=== PATIENT | male | born 1945 | race Caucasian/White ===

== ENCOUNTER 2023-05-06 07:56 | Inpatient (IN) | payer MEDICARE, BC ==
[~2023-05-06] VITALS: Ht 180 cm; Wt 69.6 kg
[2023-05-06] MEDS ORDERED: dilTIAZem DRIP PRE-MIX 125 ML IV ONE (09:40)
[2023-05-06] MEDS ORDERED: CALCIUM CARBONATE 500 MG (TUMS) TAB.CHEW PO PRN (10:30)
[2023-05-06] MEDS ORDERED: ANTACID SUSP 30 ML UDC (MYLANTA) PO PRN (10:30)
[2023-05-06] MEDS ORDERED: ONDANSETRON 4 MG/2 ML (SDV) Z0FRAN IV PRN (10:30)
[2023-05-06] MEDS ORDERED: polyethylene glycoL POWDER 17 GM (MIRALAX) PACK PO PRN (10:30)
[2023-05-06] MEDS ORDERED: ONDANSETRON 4 MG (ZOFRAN) ORAL DISSOLVE TAB PO PRN (10:30)
[2023-05-06] MEDS ORDERED: BISACODYL 10 MG SUPP (DULCOLAX) PR PRN (10:30)
[2023-05-06] MEDS ORDERED: NS IV 500 ML 500 ML IV PRN (10:30)
[2023-05-06] MEDS ORDERED: MELATONIN 3 MG TABLET PO PRN (10:30)
[2023-05-06] MEDS ORDERED: LACTULOSE SYRUP 10GM/15ML (ENULOSE) 30ML UDC PO PRN (10:30)
[2023-05-06] MEDS ORDERED: MILK OF MAGNESIA 400 MG/5 ML 30 ML UDC PO PRN (10:30)
[2023-05-06] MEDS ORDERED: ACETAMINOPHEN 325 MG TABLET PO PRN (10:30)
--- NOTE | 2023-05-06 12:35 | History & Physical-Hospitalist ---
History of Present Illness HPI/Chief Complaint Dennis Ahmadi is a 77 year old male who was transferred from [facility] due to atrial flutter with rapid ventricular response. He has a history of AFib and ablation. He had not been on medications for over 5 years. He reports palpitations. He denies chest pain and shortness of breath. He moved to [facility] recently. He drove back to [place] to see his PCP and was given Metoprolol and Eliquis. This improved his heart rate, but he went back into R and thus presented to the ER. He does not use tobacco and rarely drinks alcohol. 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 Source: patient Exam Limitations: no limitations Date Seen 05/06/23 Time Seen by a Provider: 10:30 Attending Physician No,Local Physician PCP Admitting Physician: Tonny Finnegan MD Attending Physician: Tonny Finnegan MD Referring Physician Date of Admission May 06, 2023 at 09:34 Home Medications & Allergies Home Medications Reviewed patient Home Medication Reconciliation performed by pharmacy medication reconciliations technician assistant and/or nursing. Patients Allergies have been reviewed. Allergies Allergies Coded Allergies iodine (Verified Allergy, Severe, 05/06/23) SKIN TURNS RED AND OVALLE Penicillins (Verified Allergy, Mild, Vomiting, 05/06/23) STOMACH ACHE AND VOMITING. Past Zelxpyw-[id number]-Elrwjh Hx Patient Social History Tobacco Use?: No Use of E-Cig and/or Vaping dev: No Substance use?: No Alcohol Use?: Yes Alcohol type: Beer Alcohol Frequency: Rarely Pt feels they are or have been: No Current Status Advance Directives: Yes Advance Directive Location: Family to bring in copy Communicates: Verbally Primary Language: Yakut Preferred Spoken Language: Yakut Is interpretation needed?: No Implanted or Applied Medical D: Orthopedic hardware Past Medical History Atrial Fibrillation Family Medical History No Pertinent Family Hx Review of Systems Constitutional: no symptoms reported Respiratory: no symptoms reported Cardiovascular: palpitations Gastrointestinal: no symptoms reported Physical Exam Physical Exam Vital Signs Vital Signs - First Documented 05/06/23 05/06/23 05/06/23 09:55 09:57 10:00 Temp 36.4 Pulse 108 Resp 20 B/P (MAP) 136/87 (103) Pulse Ox 100 O2 Delivery Room Air Capillary Refill : Less Than 3 Seconds Height, Weight, BMI Height: '" Weight: lbs. oz. kg; 21.48 BMI Method: General Appearance: No Apparent Distress, WD/WN HEENT: PERRL/EOMI, Pharynx Normal Neck: Normal Inspection, Supple Respiratory: Lungs Clear, Normal Breath Sounds, No Respiratory Distress Cardiovascular: No Murmur, Irregularly Irregular, Tachycardia Gastrointestinal: Normal Bowel Sounds, Non Tender, Soft Extremity: Normal Inspection, No Pedal Edema Neurologic/Psychiatric: Alert, Oriented x3, No Motor/Sensory Deficits, Normal Mood/Affect Skin: Normal Color, Warm/Dry Results Results/Procedures Labs Patient resulted labs reviewed. Assessment/Plan Admission Diagnosis Atrial flutter with RVR Admission Status: Inpatient Order (span 2 midnights) Reason for Inpatient Admission: IV antiarrhythmics Assessment and Plan Atrial flutter with RVR Cardiology consulted Liliam Trujillo NPO at midnight MERLIN cardioversion tomorrow Diagnosis/Problems Diagnosis/Problems (1) Atrial flutter with rapid ventricular response Status: Acute TONNY FINNEGAN MD May 06, 2023 12:35
--- NOTE | 2023-05-06 12:37 | Consultation-Cardiology ---
HPI-Cardiology Cardiology Consultation Date of Consultation 05/06/23 Date of Admission Time Seen by Provider: 12:34 Indication: Atrial flutter HPI 77-year-old gentleman with a history of paroxysmal atrial fibrillation/flutter, had ablation done in 2014 and 2016. Was in his usual state of health, reporting occasional episode of palpitation. Started to have palpitation with a rapid heart rate for the past 2 days. Started on Eliquis within the past 24 hours. Has been having palpitation, went to the emergency room in [facility] and noted to be in atrial flutter with rapid ventricular response. Metoprolol IV did not help his heart rate, started on Cardizem drip and it appears that his heart rate is better controlled at this time. Denied any chest pain. Feeling short of breath and palpitation during the episode. Home Medications & Allergies Allergies: Coded Allergies: iodine (Verified Allergy, Severe, 05/06/23) SKIN TURNS RED AND OVALLE Penicillins (Verified Allergy, Mild, Vomiting, 05/06/23) STOMACH ACHE AND VOMITING. Home Medication List Reviewed: Yes [id number] Hx Patient Social History Marital Status: Employed/Student: retired Alcohol Use?: Yes Past Medical History Discussed below Family Medical History Significant Family History: No Pertinent Family Hx Review of Systems-General Review of Systems Constitutional: no symptoms reported, see HPI EENTM: see HPI, no symptoms reported Respiratory: see HPI; No cough; dyspnea on exertion; No hemoptysis, No orthopnea, No phlegm, No short of breath, No stridor, No wheezing, No other Cardiovascular: see HPI; No chest pain, No edema, No Hx of Intervention; palpitations; No syncope, No vascular heart diseas, No other Gastrointestinal: no symptoms reported, see HPI Genitourinary: no symptoms reported, see HPI Musculoskeletal: no symptoms reported, see HPI Skin: no symptoms reported, see HPI Psychiatric/Neurological: No Symptoms Reported, See HPI Physical Exam Physical Exam Vital Signs Vital Signs - First Documented 05/06/23 05/06/23 05/06/23 09:55 09:57 10:00 Temp 36.4 Pulse 108 Resp 20 B/P (MAP) 136/87 (103) Pulse Ox 100 O2 Delivery Room Air Capillary Refill : Less Than 3 Seconds Height, Weight, BMI Height: '" Weight: lbs. oz. kg; 21.48 BMI Method: General Appearance: No Apparent Distress, WD/WN Eyes: Bilateral Eye Normal Inspection, Bilateral Eye PERRL, Bilateral Eye EOMI HEENT: PERRL/EOMI, TMs Normal, Normal ENT Inspection, Pharynx Normal, Moist Mucous Membranes Neck: Full Range of Motion, Normal Inspection, Non Tender, Supple, Carotid Bruit Respiratory: Chest Non Tender, Normal Breath Sounds, No Accessory Muscle Use, No Respiratory Distress Cardiovascular: No Edema, No Gallop, No JVD, No Murmur, Normal Peripheral Pulses, Tachycardia Gastrointestinal: Normal Bowel Sounds, No Organomegaly, No Pulsatile Mass, Non Tender, Soft Back: Normal Inspection, No CVA Tenderness, No Vertebral Tenderness Extremity: Normal Capillary Refill, Normal Inspection, Normal Range of Motion, Non Tender, No Calf Tenderness, No Pedal Edema Neurologic/Psychiatric: Alert, Oriented x3, No Motor/Sensory Deficits, Normal Mood/Affect Skin: Normal Color, Warm/Dry Lymphatic: No Adenopathy A/P-Cardiology Admission Diagnosis Atrial flutter Tachycardia Palpitation Hypertension Assessment/Plan Atrial flutter with rapid ventricular response Controlled currently on Cardizem drip and Eliquis Had history of ablation done twice in the past in 2014 and 2016. We discussed the need for MERLIN and cardioversion At this time due to the history of paroxysmal atrial fibrillation/flutter we can consider after the MERLIN using amiodarone or Multaq Patient will need to have a stress test as an outpatient then we will consider class Ic antiarrhythmic medication Palpitation, secondary to atrial flutter History of ablation done in [facility] and in [place] in 2014 and 2016. May require another ablation at this point. Hypertension, blood pressure is monitored Status post recent rotator cuff surgery. EVELIN WEBER MD May 06, 2023 12:37
[2023-05-06] MEDS ORDERED: APIX5TAB PO (14:41)
[2023-05-06] MEDS ORDERED: FISH1CAP15 PO (14:41)
[2023-05-06] MEDS ORDERED: PRAV40TA2 PO (14:41)
[2023-05-06] MEDS ORDERED: MULT-1136 PO (14:41)
[2023-05-06] MEDS ORDERED: CHOL200059 PO (14:41)
[2023-05-06] MEDS: dilTIAZem DRIP PRE-MIX 125 ML IV SCH (21:17)
[2023-05-06] MEDS: DOCUSATE SODIUM 100 MG (COLACE) CAP PO SCH (21:18)
[2023-05-06] MEDS: SENNOSIDES 8.6 MG (SENOKOT) TAB PO SCH (21:18)
[2023-05-06] MEDS: APIXABAN 5 MG (ELIQUIS) TABLET PO SCH (21:18)
[2023-05-07 04:39] LABS: BASOPHILS % (AUTO) 0 % (0-10); EOSINOPHILS % (AUTO) 1 % (0-10); HEMATOCRIT 43 % (40-54); HEMOGLOBIN 14.4 g/dL (13.3-17.7); LYMPHOCYTES % (AUTO) 23 % (12-44); MEAN CORPUSCULAR HEMOGLOBIN 31 pg (25-34); MEAN CORPUSCULAR HGB CONC 34 g/dL (32-36); MEAN CORPUSCULAR VOLUME 93 fL (80-99); MEAN PLATELET VOLUME 9.5 fL (9.0-12.2); MONOCYTES # (AUTO) 0.7 10^3/uL (0.0-1.0); MONOCYTES % (AUTO) 16 % (0-12); NEUTROPHILS # (AUTO) 2.5 10^3/uL (1.8-7.8); NEUTROPHILS % (AUTO) 60 % (42-75); PLATELET COUNT 149 10^3/uL (130-400); WHITE BLOOD COUNT 4.2 10^3/uL (4.3-11.0)
[2023-05-07 04:53] LABS: ALANINE AMINOTRANSFERASE 41 U/L (0-55); ALBUMIN 3.6 GM/DL (3.2-4.5); ALKALINE PHOSPHATASE 67 U/L (40-136); BILIRUBIN,TOTAL 0.8 MG/DL (0.1-1.0); BUN/CREATININE RATIO 20; CALCIUM 8.5 MG/DL (8.5-10.1); CARBON DIOXIDE 22 MMOL/L (21-32); CHLORIDE 107 MMOL/L (98-107); GFR ESTIMATED 92; GLUCOSE 102 MG/DL (70-105); POTASSIUM 3.8 MMOL/L (3.6-5.0); SODIUM 137 MMOL/L (135-145); TOTAL PROTEIN 5.7 GM/DL (6.4-8.2)
[2023-05-07] MEDS ORDERED: KCL 20 MEQ TAB (K-DUR) PO SCH (06:00)
[2023-05-07] MEDS ORDERED: MAGNESIUM 1 GM/100 ML IVPB 100 ML IV SCH (06:00)
[2023-05-07] MEDS ORDERED: POTASSIUM CL 10MEQ/50ML IVPB 50 ML IV SCH (06:00)
[2023-05-07] MEDS ORDERED: LIDOCAINE 2% VISCOUS 15 ML UDC PO ONE (07:45)
--- NOTE | 2023-05-07 08:43 | Cardiac Procedure Note-CS/ASA ---
Pre-Procedure Note Pre-Op Procedure Note Date of Available H&P: May 07, 2023 Date H&P Reviewed: May 07, 2023 Time H&P Reviewed: 08:00 History & Physical: H&P Reviewed, Patient Examed, No changes noted Pre-Operative Diagnosis: Atrial flutter Moderate Sedation PreProcedure Time 08:43 ASA Score 3 Airway Lungs Heart ASA score ASA 1: a normal healthy patient ASA 2: a patient with a mild systemic disease (mid diabetes, controlled hypertension, obesity ASA 3: a patient with a severe systemic disease that limits activity (angina, COPD, prior Myocardial infarction) ASA 4: a patient with an incapacitating disease that is a constant threat to life (CHF, renal failure) ASA 5: a moribund patient not expected to survive 24 hrs. (ruptured aneurysm) ASA 6: a declared brain- patient whose organs are being harvested. For emergent operations, add the letter E after the classification Mallampati Classification Grade 3 Sedation Plan Analgesia, Amnesia, Plan communicated to team members, Discussed options with patient/fam, Discussed risks with patient/fam The patient is an appropriate candidate to undergo the planned procedure, sedation, and anesthesia. The patient immediately re-assessed prior to indication. EVELIN WEBER MD May 07, 2023 08:43
--- NOTE | 2023-05-07 08:44 | Cardioversion ---
Cardioversion PROCEDURE PHYSICIAN: Evelin Sarkar DATE OF PROCEDURE: 05/07/23 DIRECT EXTERNAL ELECTRICAL CARDIOVERSION: Indications: Atrial Fibrillation/flutter with rapid ventricular rate Preoperative diagnoses: Atrial Fibrillation/flutter with rapid ventricular rate Postoperative diagnosis: Sinus rhythm, Successful Electrical Cardioversion History: Anesthesia: By Anesthesia services Complications: None Specimen: None Contrast: 0 Flouroscopy: none Procedure Details: The patient was brought the cath lab radiology technician after informed consent was taken, all the risks and complications were explained including the risk of stroke. Electrical cardioversion was carried out with anesthesia support with propofol. 120 joules of synchronized shock was delivered through external patches which promptly restored sinus rhythm. The patient tolerated the procedure well. Conclusions: Successful cardioversion and terminating atrial flutter Final Diagnosis: Paroxysmal atrial flutter Palpitation Tachycardia EVELIN SARKAR MD May 07, 2023 08:44
--- NOTE | 2023-05-07 08:45 | Cardiology Progress Note ---
Subjective Date Seen by Provider: May 07, 2023 Time Seen by Provider: 08:44 Subjective/Events-last exam Patient was seen at bedside laying down comfortably. No new complaint Review of Systems General: No Chills, No Night Sweats, No Fatigue, No Malaise, No Appetite, No Other HEENT: No Head Aches, No Visual Changes, No Eye Pain, No Ear Pain, No Dysphasia, No Sinus Congestion, No Post Nasal Drip, No Sore Throat, No Other Pulmonary: No Dyspnea, No Cough, No Pleuritic Chest Pain, No Other Cardiovascular: No: Chest Pain, Palpitations, Orthopnea, Paroxysmal Noc. Dyspnea, Edema, Lt Headedness, Other Objective-Cardiology Exam Last Set of Vital Signs Vital Signs 05/06/23 05/06/23 05/07/23 10:00 16:01 08:00 Temp 36.7 Pulse 80 Resp 20 B/P (MAP) 120/79 (97) Pulse Ox 97 O2 Delivery Room Air I&O Intake and Output 05/07/23 00:00 Intake Total 965 ml Output Total 625 ml Balance 340 ml Intake Oral 840 ml IV Total 125 ml Output Urine Total 625 ml Daily Weight Change Yes, 2-13 lbs General: Alert, Oriented X3, Cooperative HEENT: Atraumatic, PERRLA Neck: Supple, No JVD, No Thyromegaly Lungs: Clear to Auscultation, Normal Air Movement Heart: Regular Rate, Normal S1, Normal S2, No Murmurs Abdomen: Normal Bowel Sounds, Soft, No Tenderness, No Hepatosplenomegaly, No Masses Extremities: No Clubbing, No Cyanosis, No Edema, Normal Pulses, No Tenderness/Swelling Skin: No Rashes, No Breakdown, No Significant Lesion Neuro: Normal Gait, Normal Speech, Strength at 5/5 X4 Ext, Normal Tone, Sensation Intact Psych/Mental Status: Mental Status NL, Mood NL Results Lab Laboratory Tests 05/07/23 04:14 A/P-Cardiology Admission Diagnosis Atrial flutter Tachycardia Palpitation Hypertension Assessment/Plan Atrial flutter with rapid ventricular response Controlled currently on Cardizem drip and Eliquis Had history of ablation done twice in the past in 2014 and 2016. MERLIN was done on May 07, 2023, no clot or thrombus was seen. Mildly dilated left atrium Mild mitral regurgitation Electrical cardioversion was done and it was successful in terminating atrial flutter We will start on Multaq I will consider stress test as an outpatient for consideration for class Ic antiarrhythmic medication Palpitation, secondary to atrial flutter History of ablation done in [facility] and in [place] in 2014 and 2016. May require another ablation at this point. Hypertension, blood pressure is monitored Status post recent rotator cuff surgery. EVELIN WEBER MD May 07, 2023 08:45
[2023-05-07] MEDS ORDERED: DRONEDARONE 400 MG TABLET PO SCH (09:00)
[2023-05-07] MEDS: DOCUSATE SODIUM 100 MG (COLACE) CAP PO SCH (09:44)
[2023-05-07] MEDS: SENNOSIDES 8.6 MG (SENOKOT) TAB PO SCH (09:44)
[2023-05-07] MEDS: APIXABAN 5 MG (ELIQUIS) TABLET PO SCH (09:44)
[2023-05-07 09:48] VITALS: BP 104/74
[2023-05-07] MEDS: dilTIAZem DRIP PRE-MIX 125 ML IV SCH (09:48)
--- NOTE | 2023-05-07 09:50 | Anesthesia-General Post-Op ---
MAC Patient Condition Mental Status/LOC: Same as Preop Cardiovascular: Satisfactory Nausea/Vomiting: Absent Respiratory: Satisfactory Pain: Controlled Complications: Absent Post Op Complications Complications None Follow Up Care/Instructions Patient Instructions None needed. Anesthesiology Discharge Order Discharge Order Patient is doing well, no complaints, stable vital signs, no apparent adverse anesthesia problems. No complications reported per nursing. KADEEM OLU CRNA May 07, 2023 09:50
[2023-05-07] MEDS ORDERED: AMIO200T65 PO (11:04)
--- NOTE | 2023-05-07 14:52 | Discharge Summary ---
Discharge Summary Hospital Course Problems/Dx: (1) Atrial flutter with rapid ventricular response Status: Acute Hospital Course Date of Admission: May 06, 2023 at 09:34 Admission Diagnosis : Atrial flutter with RVR Family Physician/Provider: Date of Discharge: 05/07/23 Discharge Diagnosis: Atrial flutter with RVR Hospital Course: Dennis Ahmadi is a 77 year old male who was admitted with atrial flutter with RVR. Cardiology was consulted and assisted with his care. He was admitted to the ICU on a Cardizem drip. His rates improved. He underwent a MERLIN cardioversion on 05/07 which successfully converted him to normal sinus rhythm. He was started on Amiodarone. He was continued on Eliquis. He was discharged home in stable condition. He needs to establish with a PCP and he was referred to Dr. Guzman. Labs and Pending Lab Test: Laboratory Tests 05/07/23 04:14: White Blood Count 4.2L, Red Blood Count 4.63, Hemoglobin 14.4, Hematocrit 43, Mean Corpuscular Volume 93, Mean Corpuscular Hemoglobin 31, Mean Corpuscular Hemoglobin Concent 34, Red Cell Distribution Width 12.2, Platelet Count 149, Mean Platelet Volume 9.5, Immature Granulocyte % (Auto) 0, Neutrophils (%) (Auto) 60, Lymphocytes (%) (Auto) 23, Monocytes (%) (Auto) 16H, Eosinophils (%) (Auto) 1, Basophils (%) (Auto) 0, Neutrophils # (Auto) 2.5, Lymphocytes # (Auto) 1.0, Monocytes # (Auto) 0.7, Eosinophils # (Auto) 0.0, Basophils # (Auto) 0.0, Immature Granulocyte # (Auto) 0.0, Sodium Level 137, Potassium Level 3.8, Chloride Level 107, Carbon Dioxide Level 22, Anion Gap 8, Blood Urea Nitrogen 16, Creatinine 0.80, Estimat Glomerular Filtration Rate 92, BUN/Creatinine Ratio 20, Glucose Level 102, Calcium Level 8.5, Corrected Calcium 8.8, Total Bilirubin 0.8, Aspartate Amino Transf (AST/SGOT) 28, Alanine Aminotransferase (ALT/SGPT) 41, Alkaline Phosphatase 67, Troponin I < 0.028, Total Protein 5.7L, Albumin 3.6, Thyroid Stimulating Hormone (TSH) 2.10 Microbiology 05/06/23 MRSA Screen - Final, Complete MRSA not isolated Home Meds Active Amiodarone HCl 200 Mg Tablet 200 Mg PO UD Take 2 tablet twice daily for 2 weeks then Take 1 tablet twice daily Reported Vitamin D3 (Cholecalciferol (Vitamin D3)) 50 Mcg (2000 Unit) Tablet 50 Mcg PO DAILY Fish Oil 1,200 mg Fish Oil (Fish Oil/Dha/Epa) 1,200 Mg-144 Mg-216 Mg Capsule 1 Each PO DAILY Multivitamin 1 Each Tablet 1 Each PO DAILY Pravastatin Sodium 40 Mg Tablet 40 Mg PO HS Eliquis (Apixaban) 5 Mg Tablet 5 Mg PO BID Assessment/Pt Instructions See instructions Discharge Planning: <30 minutes discharge planning Discharge Instructions Discharge Diet: Low Sodium Diet Activity as Tolerated: Yes Consultations Cardiology Discharge Physical Examination Vital Signs Vital Signs Date Time Temp Pulse Resp B/P (MAP) Pulse Ox O2 Delivery O2 Flow Rate FiO2 05/07/23 12:30 05/07/23 11:00 82 97 Room Air 05/06/23 16:01 36.7 05/06/23 10:00 20 General Appearance: No Apparent Distress, WD/WN Respiratory: Lungs Clear, No Respiratory Distress Cardiovascular: Regular Rate, Rhythm, No Murmur Gastrointestinal: Normal Bowel Sounds, Soft Extremity: Normal Inspection, No Pedal Edema Skin: Normal Color, Warm/Dry Neurologic/Psychiatric: Alert, No Motor/Sensory Deficits Allergies: Coded Allergies: iodine (Verified Allergy, Severe, 05/06/23) SKIN TURNS RED AND OVALLE Penicillins (Verified Allergy, Mild, Vomiting, 05/06/23) STOMACH ACHE AND VOMITING. Discharge Summary Date of Admission May 06, 2023 at 09:34 Date of Discharge May 07, 2023 at 12:30 Discharge Date: May 07, 2023 Discharge Time: 12:30 Admission Diagnosis Atrial flutter with RVR Consults/Procedures Consulations Cardiology Procedures MERLIN cardioversion Discharge Diagnosis Atrial flutter with RVR (1) Atrial flutter with rapid ventricular response Status: Acute TONNY FINNEGAN MD May 07, 2023 14:51
== END 2023-05-07 12:30 | disposition home or self-care (01) | DRG 310 ==
LOC: ICU 09:34
PROVIDERS: ADMIT Internal Medicine; ATTEND Internal Medicine
PROC: 5A2204Z Restoration of Cardiac Rhythm, Single (ICD-10-PCS; principal; 2023-05-07)
DX: I48.92 Unspecified atrial flutter (principal); I48.0 Paroxysmal atrial fibrillation; I10 Essential (primary) hypertension
CPT/HCPCS: 36415; 80053; 84443; 84484; 85025; 85027; 87081; 93005; 93306; 93312; 93320; 93325

== ENCOUNTER → 2023-07-12 | Outpatient (CLI) | payer MEDICARE, BC ==
[~2023-07-12] MED LIST: AMIO200T65 PO; APIX5TAB PO; CHOL200059 PO; FISH1CAP15 PO; HOLD METFORMIN - RECEIVED CONTRAST 20 ML VIAL IV SCH; IOHEXOL 350 MG/ML 100 ML (OMNIPAQUE 350) VIAL IV ONE; MULT-1136 PO; NS 50 ML (IVPB) BAG IV ONE; PRAV40TA2 PO
[2023-07-12 14:57] LABS: CREATININE SERUM 0.97 MG/DL (0.60-1.30)
--- NOTE | 2023-07-12 16:36 | Diagnostic Imaging Report ---
EXAMINATION: CT abdomen and pelvis with and without intravenous contrast. TECHNIQUE: Precontrast acquisitions were acquired through the abdomen and pelvis. Multiple contiguous axial images were obtained through the abdomen and pelvis after the administration of intravenous contrast. All CT scans use one or more of the following dose optimizing techniques: automated exposure control, MA and/or KvP adjustment based on patient size and exam type or iterative reconstruction. HISTORY: Gross hematuria. COMPARISON: None available. FINDINGS: The heart is unremarkable. The included lung bases are clear. No evidence of renal calculi or hydronephrosis. No solid renal mass. Benign cortical cysts are seen in the kidneys bilaterally. There is normal excretion of contrast on delayed images. Within the proximal right ureter there is suggestion of filling defects (image 65 and 66, series 6). The remainder of the ureters is unremarkable. The urinary bladder has a normal appearance. No bladder calculi. No evidence of intraluminal mass within the urinary bladder. The liver, spleen, pancreas, and adrenal glands have a normal appearance. The gallbladder is unremarkable. There is no pathologically enlarged mesenteric or retroperitoneal adenopathy. The bowel loops are nondilated. The appendix is visualized in the right lower quadrant and has a normal appearance. There is no free fluid or free air. No acute osseous abnormalities. There is no free air, loculated collection, or adenopathy in the pelvis. IMPRESSION: 1. 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 Recommend correlation with patient history and symptoms and if indicated tissue sampling to further evaluate. 2. No evidence of renal calculi or hydronephrosis. No solid renal mass. Dictated by: Dictated on workstation # [id number]
== END ==
LOC: RAD 15:15
DX: R31.0 Gross hematuria (principal)
CPT/HCPCS: 36415; 74178; 82565; 84520

== ENCOUNTER → 2023-10-12 | Outpatient (CLI) | payer MEDICARE ==
[~2023-10-12] MED LIST changes: +CATHETER FLUSH 10 ML SYR IV PRN; +NS 100 ML (IVPB) BAG IV ONE; -NS 50 ML (IVPB) BAG IV ONE
[2023-10-12 09:08] LABS: CREATININE SERUM 0.92 MG/DL (0.60-1.30)
--- NOTE | 2023-10-12 12:41 | Diagnostic Imaging Report ---
EXAMINATION: CT abdomen and pelvis with and without intravenous contrast. TECHNIQUE: Precontrast acquisitions were acquired through the abdomen and pelvis. Multiple contiguous axial images were obtained through the abdomen and pelvis after the administration of intravenous contrast. All CT scans use one or more of the following dose optimizing techniques: automated exposure control, MA and/or KvP adjustment based on patient size and exam type or iterative reconstruction. HISTORY: Gross hematuria. History of renal stones. COMPARISON: 07/12/2023. FINDINGS: The heart is unremarkable. Small amount of dependent atelectasis is seen in the lung bases. No evidence of renal calculi or hydronephrosis. There is normal excretion of contrast on delayed images. No solid renal mass is seen. Tiny simple cortical cysts are seen bilaterally. No perinephric fat stranding. The urinary bladder is unremarkable. No bladder calculi or intraluminal mass. The liver, spleen, pancreas, and adrenal glands have a normal appearance. The gallbladder is nondistended. The portal vein is patent. There is no pathologically enlarged mesenteric or retroperitoneal adenopathy. The bowel loops are nondilated. The appendix is visualized in the right lower quadrant and has a normal appearance. There is no free fluid or free air. No acute osseous abnormalities. There is no free air, loculated collection, or adenopathy in the pelvis. IMPRESSION: 1. No renal calculi or hydronephrosis. No solid renal mass. 2. No acute abnormalities in the abdomen and pelvis. Dictated by: Dictated on workstation # [id number]
== END ==
LOC: RAD 08:44
DX: R31.0 Gross hematuria (principal); Z87.442 Personal history of urinary calculi
CPT/HCPCS: 36415; 74178; 82565; 84520